=== PATIENT | male | born 1955 | race Caucasian/White ===

== ENCOUNTER 2019-11-16 07:56 | Emergency (ER) | payer BC ==
[~2019-11-16] VITALS: Ht 180.3 cm; Wt 79.4 kg
[2019-11-16] MEDS ORDERED: NACL 0.9% 1,000 ML IV ONE (07:58)
--- NOTE | 2019-11-16 07:58 | NUR ---
Placed in room 8 . Placed on chemical pumper, blood pressure machine and pulse oximeter. To gown for exam. Side rails up. Report given to RAHEEL Mott.
--- NOTE | 2019-11-16 07:59 | NUR ---
Patient is awake, alert, and oriented x4. He came from home and ambulated to the [facility] without any assistance. He is complaining of intermittent chest pressure since last night. Patient denies shortness of breath, nausea, vomiting, and diarrhea.
--- NOTE | 2019-11-16 07:59 | NUR ---
Note valeri in ED - 11/16/19 at 0813 by [email or web address] Placed in room 8 . Placed on night monitor, blood pressure machine and pulse oximeter. To gown for exam. Side rails up. Report given to RAHEEL Mott.
[2019-11-16] MEDS ORDERED: MAG HYDROX/AL HYDROX/SIMETH 30 ML, DICYCLOMINE HCL 20 MG, LIDOCAINE VISCOUS 2% 15ML (PO... PO ONE ×3 (08:00)
[2019-11-16] MEDS ORDERED: ASPIRIN 81 MG TAB.CHEW PO ONE (08:00)
[2019-11-16 08:01] VITALS: BP_SYST 135
--- NOTE | 2019-11-16 08:06 | NUR ---
ER Dr. Villanueva at bedside examining patient.
--- NOTE | 2019-11-16 08:18 | NUR ---
X-ray at bedside.
--- NOTE | 2019-11-16 08:20 | NUR ---
Medication reconciliation completed with information provided by patient. Patient states no prescription medications taken on a daily basis.
[2019-11-16 08:31] LABS: BASOPHILS % (AUTO) 0.4 % (0.0-2.0); EOSINOPHILS # (AUTO) 0.1 K/uL (0.0-0.4); EOSINOPHILS % (AUTO) 1.2 % (0.0-4.0); HEMATOCRIT 44.4 % (36-54); HEMOGLOBIN 15.2 g/dL (14.0-18.0); LYMPHOCYTES # (AUTO) 2.3 K/uL (1.0-5.5); MEAN CORPUSCULAR HEMOGLOBIN 32 pg (27-31); MEAN CORPUSCULAR HGB CONC 34 % (32-36); MEAN CORPUSCULAR VOLUME 95 fL (79.0-98.0); MONOCYTES # (AUTO) 0.6 K/uL (0.0-1.0); MONOCYTES % (AUTO) 6.8 % (1.7-9.3); NEUTROPHILS # (AUTO) 5.4 K/uL (1.8-7.7); NEUTROPHILS % (AUTO) 64.6 % (40.0-70.0); PLATELET COUNT (AUTO) 239 K/uL (130-430); RED CELL DISTRIBUTION WIDTH 13.6 % (9.0-15.0); WHITE BLOOD COUNT (AUTO) 8.4 K/uL (4.8-10.8)
[2019-11-16 08:42] LABS: CREATININE 0.86 mg/dL (0.55-1.30); POTASSIUM 4.1 mmol/L (3.5-5.1)
[2019-11-16 08:47] LABS: INR 0.9 (0.80-1.20); PROTHROMBIN TIME 9.2 SECS (9.5-12.5)
[2019-11-16 08:48] LABS: ALBUMIN 3.7 g/dL (3.4-4.8); TOTAL BILIRUBIN 0.5 mg/dL (0.0-1.0)
[2019-11-16 08:55] LABS: BILIRUBIN,URINE NEGATIVE (NEGATIVE); BLOOD, URINE NEGATIVE (NEGATIVE); CLARITY/URINE CLEAR (CLEAR); COLOR,URINE YELLOW (YELLOW); GLUCOSE,URINE NEGATIVE (NEGATIVE); KETONES,URINE NEGATIVE (NEGATIVE); LEUKOCYTE ESTERASE ,URINE NEGATIVE (NEGATIVE); NITRITE, URINE NEGATIVE (NEGATIVE); PH,URINE 7.5 (5.0-8.0); PROTEIN URINE NEGATIVE (NEGATIVE); UROBILINOGEN,URINE 0.2 (0.2-1.0)
[2019-11-16 09:42] VITALS: BP_SYST 124
== END 2019-11-16 09:42 | disposition home or self-care (01) ==
LOC: SED 07:56
DX: R10.13 Epigastric pain (principal)
CPT/HCPCS: 36415; 71045; 80053; 81003; 82150; 82550; 83605; 83690; 84484; 85025; 85610; 85730; 87040; 93005; 99284; J2001; J7030